=== PATIENT | male | born 1980 | race Caucasian/White ===

== ENCOUNTER 2023-12-22 13:20 | Emergency (ER) | payer OTHER ==
[2023-12-22 13:55] LABS: BASOPHILS # (AUTO) 0.1 10^3/uL (0.0-0.1); BASOPHILS % (AUTO) 0.9 %; EOSINOPHILS # (AUTO) 0.2 10^3/uL (0.0-0.7); EOSINOPHILS % (AUTO) 2.3 %; HCT - HEMATOCRIT 46.5 % (42.0-52.0); HGB - HEMOGLOBIN 14.8 g/dL (14.0-18.0); LYMPHOCYTES % (AUTO) 30.2 %; MEAN CORPUSCULAR HEMOGLOBIN 26.4 pg (27.0-31.0); MEAN CORPUSCULAR HGB CONC 31.8 g/dL (32.0-36.0); MEAN PLATELET VOLUME 9.2 fL (7.4-11.4); MONOCYTES # (AUTO) 0.6 10^3/uL (0.0-1.0); MONOCYTES % (AUTO) 8.8 %; NEUTROPHILS # (AUTO) 3.7 10^3/uL (1.5-6.6); NEUTROPHILS % (AUTO) 57.5 %; PLT - PLATELET COUNT 270 10^3/uL (130-450); RED CELL DISTRIBUTION WIDTH 12.9 % (12.0-15.0); WHITE BLOOD COUNT 6.5 x10^3/uL (4.8-10.8)
[2023-12-22 14:10] LABS: ALBUMIN 4.9 g/dL (3.2-5.5); ALBUMIN/GLOBULIN RATIO 1.7 (1.0-2.2); BILIRUBIN,TOTAL 1.3 mg/dL (0.2-1.0); POTASSIUM 4.5 mmol/L (3.5-4.5); TOTAL PROTEIN 7.8 g/dL (6.4-8.9)
[2023-12-22] MEDS: LIDOCAINE VISCOUS 2% 15 ML UDC MM STA (14:22)
[2023-12-22] MEDS: MAG HYDROX/AL HYDROX/SIMETH 30 ML UDC PO STA (14:22)
[2023-12-22] MEDS ORDERED: iohexoL-300 100 ML VIAL ONE (14:23)
--- NOTE | 2023-12-22 14:23 | ED Physician Documentation ---
PD HPI ABD PAIN - Stated complaint Stated Complaint: LUQ PX - Chief complaint Chief Complaint: Abd Pain - History obtained from History obtained from: Patient - Additional information Additional information: 43-year-old male with history of hypertension, hyperlipidemia, GERD presents by private vehicle for left sided abdominal pain. Patient states that pain usually happens after eating and is relieved with abdominal massage. Last night patient states that the pain was much more severe than usual and migrated into his left lower quadrant. Reports history of colonoscopy 5 years ago, due for another colonoscopy this year. Patient states his pain is currently not as intense, but it was severe enough last night that it caused him concern and he is here for evaluation. Denies nausea, vomiting, constipation. Reports remote history of umbilical hernia repair. Review of Systems Constitutional: denies: Fever, Chills Respiratory: denies: Dyspnea, Cough, Wheezing GI: denies: Abdominal Pain, Nausea, Vomiting : denies: Dysuria, Frequency, Hesitancy Musculoskeletal: denies: Neck pain, Back pain, Extremity pain Neurologic: denies: Generalized weakness, Focal weakness, Numbness PD PAST MEDICAL HISTORY - Past Medical History Past Medical History: Yes Cardiovascular: Hypertension GI: GERD - Past Surgical History Past Surgical History: No General: Hiatal hernia repair - Present Medications Home Medications: Ambulatory Orders Medication Instructions Recorded Confirmed No Known Home Medications 12/22/23 12/22/23 - Allergies Allergies/Adverse Reactions: Allergies Allergy/AdvReac Type Severity Reaction Status Date / Time Penicillins Allergy Unknown Verified 12/22/23 13:42 - Social History Does the pt smoke?: No Smoking Status: Never smoker Does the pt drink ETOH?: No Does the pt have substance abuse?: No - Immunizations Immunizations are current?: No - POLST Patient has POLST: No PD ED PE NORMAL - Vitals Vital signs reviewed: Yes - General General: Alert and oriented X 3, No acute distress, Well developed/nourished - Neck Neck: Supple, no meningeal sign - Cardiac Cardiac: RRR, Strong equal pulses - Respiratory Respiratory: No respiratory distress, Clear bilaterally - Abdomen Abdomen: Soft, Non distended, Other (Left upper and lower quadrant tenderness to deep palpation without rebound or guarding) - Derm Derm: Normal color, Warm and dry, No rash - Neuro Neuro: Alert and oriented X 3, 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, No motor deficit, Normal speech Results - Vitals Vitals: Oxygen O2 Source Room air - Labs Labs: Laboratory Tests 12/22/23 12/22/23 13:47 13:47 WBC 6.5 RBC 5.60 Hgb 14.8 Hct 46.5 MCV 83.0 MCH 26.4 L MCHC 31.8 L RDW 12.9 Plt Count 270 MPV 9.2 Neut # (Auto) 3.7 Lymph # (Auto) 2.0 Reagan # (Auto) 0.6 Eos # (Auto) 0.2 Baso # (Auto) 0.1 Absolute Nucleated RBC 0.00 Nucleated RBC % 0.0 Sodium 134 L Potassium 4.5 Chloride 99 L Carbon Dioxide 29 Anion Gap 6.0 BUN 12 Creatinine 1.0 Estimated GFR (MDRD) 82 L Glucose 98 Calcium 10.0 Total Bilirubin 1.3 H AST 26 ALT 37 Alkaline Phosphatase 51 Total Protein 7.8 Albumin 4.9 Globulin 2.9 Albumin/Globulin Ratio 1.7 Lipase 22 PD Medical Decision Making - ED course Complexity details: reviewed results, re-evaluated patient, considered differential, d/w patient ED course: Well-appearing patient with sudden worsening of chronic left-sided pain. Abdomen soft, no peritoneal signs. Suspect stomach pathology including possibi lity of gastritis or ulcers. Laboratory work and CT imaging showed no acute abnormalities. Patient was informed of findings, it was recommended that he continue to take his daily antacid and to possibly add Pepcid to his regimen. Counseled on decreasing acidic food intake, decrease caffeine and alcohol intake, and recommended that if he smokes that he stop to help protect the lining of the stomach. General surgery referral provided to discuss possibility of endoscopy in the future. Departure - Departure Disposition: 01 Home, Self Care Clinical Impression: Abdominal pain Qualifiers: Abdominal location: left upper quadrant Qualified Code(s): R10.12 - Left upper quadrant pain Instructions: ED Abdominal Pain Unkn Cause Male Follow-Up: Guille Calabrese MD [Provider Admit Priv/Credential] - Comments: Your laboratory work and CT imaging today did not show any significant abnormal findings. Continue to take omeprazole, you may also add Pepcid. A referral is in your paperwork to general surgery. You can make an appointment to discuss possibility of endoscopy for your symptoms. Forms: PCP List Discharge Date/Time: 12/22/23 15:32
--- NOTE | 2023-12-22 15:14 | CT Report ---
PROCEDURE: Abdomen/Pelvis W INDICATIONS: LLQ ABD PAIN CONTRAST: Omni 300 100ml TECHNIQUE: After the administration of intravenous contrast, a CT scan of the abdomen and pelvis was performed. Images were recorded and evaluated at appropriate window settings. Reformats: coronal and sagittal. F or radiation dose reduction, the following was used: automated exposure control, adjustment of mA and /or kV according to patient size. COMPARISON: None. FINDINGS: Image quality: Diagnostic. Lower chest: Unremarkable. Liver: No solid mass. Mild steatosis. Gallbladder: Unremarkable. Biliary tree: No intrahepatic or extrahepatic dilation, accounting for age. Spleen: No splenomegaly. Pancreas: No pancreatic ductal dilation. Adrenals: No adrenal nodule. Kidneys and ureters: No hydronephrosis. No renal cystic lesion which requires follow up. No solid mas s. Stomach, bowel and peritoneum: No gastric or small bowel dilation. There is appearance of thickening within the transverse and descending colon. No inflammatory change. No pathologic free fluid. Colonic diverticula are present. Lymph nodes: No central or retroperitoneal adenopathy. Vessels: No infrarenal aortic aneurysm. Patent portal vein. PELVIS Reproductive organs: Unremarkable. Bladder: No abnormal wall thickening, accounting for underdistention. Pelvic lymph nodes: No pelvic adenopathy by size criteria. Bones: No aggressive osseous abnormality. Other: Bilateral fat-containing inguinal hernia. IMPRESSION: Appearance of thickening within the transverse and descending colon without inflammatory change. Whil e this could represent incomplete distention, developing early colitis cannot be excluded. Reviewed by: Michaela Dumont MD on 12/22/2023 3:12 PM PDT Approved by: Michaela Dumont MD on 12/22/2023 3:12 PM PDT Station ID: [id number]
[2023-12-22 15:35] VITALS: BP 148/102; O2SAT 100
[2023-12-22] MEDS: iohexoL-300 100 ML VIAL IVP ONE (16:24)
== END 2023-12-22 15:32 | disposition home or self-care (01) ==
LOC: ED 13:20
DX: R10.12 Left upper quadrant pain (principal); R10.32 Left lower quadrant pain; G89.29 Other chronic pain; I10 Essential (primary) hypertension
CPT/HCPCS: 36415; 74177; 80053; 83690; 85025; 99283; 99284; A9270; Q9967

== ENCOUNTER 2024-04-08 06:34 | Day surgery (SDC) | payer OTHER ==
[2024-04-08] MEDS: LACTATED RINGERS 1,000 ML IV ONE ×2 (06:40→08:22)
[2024-04-08] MEDS ORDERED: PROPOFOL 500 MG/50 ML 500 MG/50 ML VIAL ONE ×2 (07:14→07:50)
[2024-04-08] MEDS ORDERED: LIDOCAINE-MPF 2% 5 ML VIAL ONE (07:14)
--- NOTE | 2024-04-08 07:22 | HISTORY & PHYSICAL EXAMINATION ---
Chief Complaint - Chief Complaint Chief Complaint: here for endoscopy History of Present Illness - History Obtained From Records Reviewed: yes History obtained from: pt Exam Limitations: none - History of Present Illness HPI Comment/Other: progressive heart burn and family hx colon ca. History - Past Medical History Cardiovascular: reports: Hypertension, High cholesterol Respiratory: reports: None GI: reports: GERD : reports: None HEENT: reports: None Psych: Musculoskeletal: reports: None Derm: reports: None MRSA Hx?: No - Past Surgical History General: reports: Other - POLST Patient has POLST: No Meds/Allgy - Home Medications Home Medications: Ambulatory Orders Medication Instructions Recorded Confirmed Lisinopril [Zestril] 10 mg PO DAILY 04/07/24 04/07/24 Rosuvastatin Calcium 5 mg PO DAILY 04/07/24 04/07/24 - Allergies Allergies/Adverse Reactions: Allergies Allergy/AdvReac Type Severity Reaction Status Date / Time Penicillins Allergy Unknown Verified 12/22/23 13:42 Review of Systems - Other Findings Other Findings: 10 pt ros as above otherwise unremarkable Exam - Vital Signs Vital Signs: Vital Signs x48h Temp Pulse Resp BP Pulse Ox 04/08/24 06:42 36.6 C 71 16 141/84 H 99 - Physical Exam General Appearance: positive: No acute distress, Alert Eyes Bilateral: positive: PERRL, EOMI ENT: positive: No signs of dehydration Neck: positive: No JVD, Trachea midline Respiratory: positive: No respiratory distress Cardiovascular: positive: Regular rate & rhythm Abdomen: positive: No distention Neurologic/Psychiatric: positive: Oriented x3 Conclusion/Plan - Problem List (1) Colon cancer screening Conclusion/Plan: fhx colon ca mother early age. progressive heart burn recently. plan egd and colonoscopy. parq held and consent obtained
--- NOTE | 2024-04-08 07:24 | ANESTHESIA ---
Pre-Anesthesia VS, & Labs - Diagnosis GERD, family history of colon cancer - Procedure EGD, Colonoscopy Vital Signs: Temp Pulse Resp BP Pulse Ox O2 Flow Rate 36.6 C 71 16 141/84 H 99 04/08/24 06:42 04/08/24 06:42 04/08/24 06:42 04/08/24 06:42 04/08/24 06:42 Height: 6 ft 1 in Weight (kg): 107 kg Body Mass Index: 31.1 BMI Classification: Obese - NPO Other (prep as directed last 430) Home Medications and Allergies Home Medications: Ambulatory Orders Lisinopril [Zestril] 10 mg PO DAILY 04/07/24 Rosuvastatin Calcium 5 mg PO DAILY 04/07/24 Lisinopril [Zestril] 10 mg PO DAILY 04/07/24 Rosuvastatin Calcium 5 mg PO DAILY 04/07/24 Allergies/Adverse Reactions: Allergies Allergy/AdvReac Type Severity Reaction Status Date / Time Penicillins Allergy Unknown Verified 12/22/23 13:42 Anes History & Medical History - Anesthetic History Anesthesia Complications: reports: No previous complications - Medical History Cardiovascular: reports: Hypertension, High cholesterol Pulmonary: reports: Sleep apnea, CPAP use Gastrointestinal: reports: GERD Urinary: reports: None Musculoskeletal: reports: None Skin: reports: None Smoking Status: Light tobacco smoker (pipe rarely) Psychosocial: reports: Cannabis (gummies few a week) - Surgical History General: reports: Other Exam General: Alert, Oriented x3 Dental: WNL Mouth Opening: Greater than 4 Fingerbreadths Neck Mobility: Normal Mallampati classification: I Thyromental Distance: greater than 6 cm Respiratory: Lungs clear Cardiovascular: Regular rate Plan Anesthesia Type: Total IV Consent for Procedure(s) Verified and Reviewed: Yes Code Status: Attempt Resuscitation ASA classification: 2-Mild systemic disease Is this case an emergency?: No
[2024-04-08 08:29] VITALS: O2SAT 100
--- NOTE | 2024-04-08 08:46 | ANESTHESIA POST OP EVALUATION ---
Anesthesia Post Eval - Post Anesthesia Eval Vitals: Last Vital Signs Temp 36.2 C L 04/08/24 08:24 Pulse 68 04/08/24 08:34 Resp 16 04/08/24 08:34 BP 112/53 L 04/08/24 08:34 Pulse Ox 100 04/08/24 08:34 O2 Flow Rate CV Function Including HR & BP: Stable Pain Control: Satisfactory Nausea & Vomiting: Negative Mental Status: Baseline Respiratory Status: Airway Patent Hydration Status: Satisfactory Anesthesia Complications: None
[2024-04-08 08:51] VITALS: BP 124/54
== END 2024-04-08 06:35 | disposition home or self-care (01) ==
LOC: SDS 06:34
PROVIDERS: ATTEND Surgery
PROC: 0DB28ZX Excision of Middle Esophagus, Via Natural or Artificial Opening Endoscopic, Diagnostic (ICD-10-PCS; 2024-04-08)
PROC: 0DJD8ZZ Inspection of Lower Intestinal Tract, Via Natural or Artificial Opening Endoscopic (ICD-10-PCS; 2024-04-08)
PROC: 0DB38ZX Excision of Lower Esophagus, Via Natural or Artificial Opening Endoscopic, Diagnostic (ICD-10-PCS; principal; 2024-04-08 08:30)
PROC: 0DB78ZX Excision of Stomach, Pylorus, Via Natural or Artificial Opening Endoscopic, Diagnostic (ICD-10-PCS; 2024-04-08 08:30)
DX: Z12.11 Encounter for screening for malignant neoplasm of colon (principal); K57.30 Diverticulosis of large intestine without perforation or abscess without bleeding; K29.50 Unspecified chronic gastritis without bleeding; K21.9 Gastro-esophageal reflux disease without esophagitis; R12 Heartburn; Z80.0 Family history of malignant neoplasm of digestive organs; E66.9 Obesity, unspecified; Z68.31 Body mass index [BMI] 31.0-31.9, adult; G47.30 Sleep apnea, unspecified; I10 Essential (primary) hypertension; F17.290 Nicotine dependence, other tobacco product, uncomplicated
CPT/HCPCS: 43239; 45378; J7120